=== PATIENT | female | born 1960 | race Caucasian/White ===

== ENCOUNTER 2024-05-03 20:58 | Emergency (ER) | payer OTHER ==
[~2024-05-03] VITALS: Ht 154.9 cm; Wt 71.1 kg
[2024-05-03 22:35] LABS: BASO % 0.5 % (0.0-1.0); EOS % 0.7 % (0.0-3.0); HEMATOCRIT 37.6 % (36.0-47.0); HEMOGLOBIN 12.3 g/dl (12.0-15.5); LYMPH # 1.3 10^3/uL (1.5-5.0); LYMPH % 23.1 % (24.0-44.0); MEAN CORPUSCULAR HGB CONC 32.7 g/dl (32.0-36.5); MEAN CORPUSCULAR VOLUME 91.7 fl (80.0-96.0); MONO # 0.3 10^3/uL (0.0-0.8); MONO % 5.2 % (2.0-8.0); NEUTROPHILS # 4.1 10^3/uL (1.5-8.5); NEUTROPHILS % 70.2 % (36.0-66.0); PLATELET COUNT, AUTOMATED 182 10^3/uL (150-450); WHITE BLOOD COUNT 5.8 10^3/uL (4.0-10.0)
[2024-05-03 22:48] LABS: CK-MB VALUE MASS < 1.0 NG/ML (<3.6); LIPASE 29 U/L (12-53)
[2024-05-03 22:50] LABS: ALBUMIN 3.6 G/DL (3.2-5.2); ALKALINE PHOSPHATASE 114 U/L (46-116); ALT/SGPT 17 U/L (7.0-40); AST/SGOT 11 U/L (<34); BILIRUBIN,DIRECT 0.2 MG/DL (<0.4); BILIRUBIN,TOTAL 0.7 MG/DL (0.3-1.2); BLOOD UREA NITROGEN 12 MG/DL (9-23); CALCIUM LEVEL 9.3 MG/DL (8.3-10.6); CARBON DIOXIDE LEVEL 26 MMOL/L (20-31); CHLORIDE LEVEL 98 MMOL/L (98-107); CPK CREATINE PHOSPHOKINASE 97 U/L (34-145); CREATININE FOR GFR 0.79 MG/DL (0.55-1.30); GLOMERULAR FILTRATION RATE > 60.0 (>45); GLUCOSE, FASTING 120 MG/DL (74-106); MB/CK RELATIVE INDEX 1.03 (< OR =4); POTASSIUM SERUM 4.4 MMOL/L (3.5-5.1); SODIUM LEVEL 130 MMOL/L (136-145); TOTAL PROTEIN 7.7 G/DL (5.7-8.2)
[2024-05-03 22:51] LABS: INR 1.09; PROTHROMBIN TIME 13.8 SECONDS (12.5-14.5)
[2024-05-04 01:02] LABS: CK-MB VALUE MASS < 1.0 NG/ML (<3.6)
[2024-05-04 01:04] LABS: CPK CREATINE PHOSPHOKINASE 98 U/L (34-145); MB/CK RELATIVE INDEX 1.02 (< OR =4)
[2024-05-04 02:11] VITALS: BP 200/94
[2024-05-04] MEDS: hydrALAZINE 20MG/ML 1ML VIAL IV STA (02:11)
[2024-05-04] MEDS: KETOROLAC 30 MG/ML 1ML VIAL IV ONE (02:14)
[2024-05-04] MEDS ORDERED: ISOVUE-370 76% 100ML VIAL As Ordered ONE (03:55)
[2024-05-04] MEDS: LIDOCAINE 5% (LIDODERM) PATCH TD ONE (04:30)
[2024-05-04] MEDS ORDERED: TRAM50TA2 PO (04:51)
[2024-05-04] MEDS ORDERED: LIDO1PAD TOP (04:51)
[2024-05-04 05:11] VITALS: BP 148/50; TEMP 98.8; O2SAT 98
== END 2024-05-04 05:13 | disposition home or self-care (01) ==
LOC: M ED 20:58
DX: S29.012A Strain of muscle and tendon of back wall of thorax, initial encounter (principal); X58.XXXA Exposure to other specified factors, initial encounter; Y92.9 Unspecified place or not applicable; Y93.9 Activity, unspecified; Y99.9 Unspecified external cause status
CPT/HCPCS: 36415; 71045; 71275; 74176; 80048; 80076; 82550; 82553; 83690; 84484; 85025; 85610; 93005; 93041; 94760; 96374; 96375; 99285; J0360; J1885; Q9967

== ENCOUNTER → 2025-02-07 | Outpatient (REF) | payer MEDICARE ==
[~2025-02-07] MED LIST: LIDO1PAD TOP; TRAM50TA2 PO
[2025-02-08 15:13] LABS: PROTEIN, TOTAL SO 8.3 g/dL (6.1-8.1); UPEP CREATININE 26 mg/dL (20-275); UPEP TOTAL PROTEIN < 4 mg/dL (5-24)
== END ==
LOC: M LAB REF 12:19
PROVIDERS: ATTEND Internal Medicine
DX: R79.89 Other specified abnormal findings of blood chemistry (principal)

== ENCOUNTER → 2025-02-24 | Day surgery (SDC) | payer OTHER ==
[~2025-02-24] VITALS: Ht 154.9 cm; Wt 71.7 kg
[~2025-02-24] MED LIST changes: +ASPI81TA26 PO; +LIDOCAINE 2% 100MG/5ML SDV (FOR ANES.) As Ordered ONE; +LOSA50TA28 PO; +METO1TAB87 PO; +ROSU10TA61 PO; +propofoL 200 MG/20 ML VIAL As Ordered ONE
[2025-02-24 11:18] VITALS: TEMP 97.3
[2025-02-24 11:34] VITALS: BP 118/61; O2SAT 98
== END | disposition home or self-care (01) ==
LOC: M OPP 10:02
PROVIDERS: ATTEND Surgery
DX: Z12.11 Encounter for screening for malignant neoplasm of colon (principal); Z79.82 Long term (current) use of aspirin; Z79.899 Other long term (current) drug therapy; Z87.891 Personal history of nicotine dependence